=== PATIENT | female | born 1975 | race Caucasian/White ===

== ENCOUNTER → 2021-08-28 | Day surgery (SDC) | payer BC ==
[~2021-08-28] VITALS: Ht 154.9 cm; Wt 78.0 kg
[~2021-08-28] MED LIST: ACETAMINOPHEN 500 MG TABLET PO PRN; BUPIVACAINE-EPI 0.5% 30 ML VIAL KIT. ONE; BUPR300T3 PO; DEXAMETHASONE SOD PHOS 4 MG/ML VIAL ONE; ESCITALOPRAM OX20 MG PO; HYDR12.58 PO; HYDROmorphone 2 MG/ML INJ. IVP PRN; IOHEXOL 300 MG/ML 50 ML VIAL. ONE; IRBE300T23 PO; MORPHINE SULFATE 2 MG/ML INJ. IVP PRN; MORPHINE SULFATE 2 MG/ML INJ. ONE; ONDANSETRON PF 4 MG/2 ML VIAL. ONE; OXYC-325 PO; PROCHLORPERAZINE 10 MG/2 ML VIAL. IVP PRN; PROCHLORPERAZINE 10 MG/2 ML VIAL. ONE; PROPOFOL 10 MG/ML (20ML) VIAL. IV ONE; ROCURONIUM 50 MG/5 ML VIAL. ONE; SCOPOLAMINE 1.5MG PATCH. TD ONE; SUGAMMADEX SODIUM 200 MG/2 ML VIAL. IVP ONE; SURGICEL HEMOSTAT 4X8 EACH. ONE; TRAZ-118 PO; fentaNYL PF VIAL 100 MCG/2 ML VIAL IVP PRN; fentaNYL PF VIAL 100 MCG/2 ML VIAL ONE; oxyCODONE/APAP 5/325 1 TAB TABLET PO ONE
[2021-08-28 10:57] VITALS: BP 144/82
[2021-08-28] MEDS: IV RINGERS,LACTATED 1000ML 1,000 ML IV SCH ×2 (11:16→11:20)
--- NOTE | 2021-08-28 13:26 | PDOC4 ---
Operative Note Operative Note Date: September 282021 at 1:24 PM Preoperative diagnosis: Chronic cholecystitis Postoperative diagnosis: Same Procedure: Laparoscopic cholecystectomy with fluorescein cholangiography Surgeon: Dillan Specimen: Gallbladder Vehicle Trimmer: None Dictation: Patient is a 45-year-old female with right upper quadrant abdominal pain ultrasound showing gallstones. Procedure laparoscopic cholecystectomy was explained to the patient detail risk benefits were also discussed including bleeding infection injury to intra-abdominal contents possible necessitating further open operations alternatives to this procedure also discussed with the patient who seemed to understand and gave a verbal written consent to have pro cedure performed. Patient was taken to the operating room placed in the supine position general anesthesia was initiated once patient was sleeping intubated her abdomen was prepped and draped usual sterile fashion using ChloraPrep. An area just below the umbilicus was injected with quarter percent Marcaine with epinephrine incision was made with a blade scalpel and a varies needle was placed within the abdomen creating pneumoperitoneum once this was complete the millimeter port was placed in a 5 mm camera was placed within the abdomen which was inspected no other abnormalities were noted. A 5 mm ports placed in the epigastrium a 5 mm port was placed in the right midabdomen a 5 mm port was placed in the right lateral abdomen all under direct visualization. The dome of the gallbladder is grasped retracted cephalad the infundibulum the gallbladder is grasped retracted laterally exposing the triangle of adherent tissue the triangle were taken down blunt dissection using [place] grasper exposing the cystic duct and cystic artery fluorescing cholangiography was then performed which showed good dye within the cystic duct to the common bile duct with no evidence of obstruction. The cystic duct was doubly clipped and transected the cystic artery was doubly clipped and transected the gallbladder was taken off the liver with hook electrocautery placed in Endo Catch bag and removed the umbilicus right upper quadrant was irrigated and suctioned dry hemostasis deemed be appropriate the pneumoperitoneum was reduced all ports were removed the fascial defect at the umbilicus was closed with a [id number] 0 Vicryl suture and the skin was reapproximated all port sites for subcuticular Monocryl Mastisol Steri-Strips and island dressings were applied. Patient was awakened extubated in the operating room taken to recovery in stable condition all sponge instrument needle counts listed as correct estimated blood loss 10 mL COOPER GALO MD Aug 28, 2021 13:26
--- NOTE | 2021-08-28 13:29 | DISCH ---
DISCHARGE INSTRUCTIONS Condition on Discharge Condition on Discharge: Stable Activity After Discharge Activity Instructions for Disc: Avoid exertion Other activity instructions: No lifting more than 20 pounds for 2 weeks Diet after Discharge Diet after Discharge: Low Fat Wound Incision Care Other wound/incision instructi: May shower in 24 hours Contacting the after DC Call your doctor for: If your condition worsens Follow-Up Follow up with: Dr. Galo in 2-week COOPER GALO MD Aug 28, 2021 13:29
[2021-08-28 15:00] VITALS: BP 127/77
--- NOTE | 2021-08-29 18:08 | PATHOLOGY ---
[facility] Accession Number: [id number] . 01 Material submitted: . gallbladder - GALLBLADDER AND CONTENTS . 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 02 Diagnosis: Gallbladder, laparoscopic cholecystectomy: - Cholelithiasis. - Chronic cholecystitis. (MARIE:naomi; 08/29/2021) R 08/29/2021 1446 Local . 02 Comment: There is no evidence of malignancy. (MARIEM:naomi; 08/29/2021) . 02 Electronically signed: . Eleazar Dean MD, Pathologist NPI- [id number] . 01 Gross description: . Fixative: Formalin Labeled: Gallbladder and contents Specimen received: Intact gallbladder Dimensions: 5.1 x 2.4 x 1.8 cm Serosa: [place]-villagomez and wrinkled to cauterized Lymph node: None identified Mucosa: Red-villagomez, velvety Average wall thickness: 0.3 cm Calculi: 4 present displaying a yellow-green, multifaceted appearance and ranging in size from 0.6-0.8 cm Abnormalities: None identified . 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 ([facility]; 08/28/2021) NRI/NRI 08/28/2021 1719 Local . 02 Pathologist provided ICD-10: K80.10 . 02 CPT . 493651 Specimen Comment: A courtesy copy of this report has been sent to [phone], [phone] Specimen Comment: [id number] Specimen Comment: Report sent to / DR DUNLAP Performed at: [address], [place], [place] [id number] MD Dell Marshall MD Phone: [phone] Performed at: 02 [facility] [address] [place], [place] [id number] MD Eleazar Dean MD Phone: [phone]
== END | disposition home or self-care (01) ==
LOC: SURG 08:00
PROVIDERS: ATTEND Surgery
DX: K80.10 Calculus of gallbladder with chronic cholecystitis without obstruction (principal); I10 Essential (primary) hypertension; F41.9 Anxiety disorder, unspecified; F32.9 Major depressive disorder, single episode, unspecified; Z79.899 Other long term (current) drug therapy; Z98.890 Other specified postprocedural states; Z72.89 Other problems related to lifestyle; Z88.1 Allergy status to other antibiotic agents
CPT/HCPCS: 47563; 81025; 88304; A4364; A4930; A6219; J0780; J1100; J1956; J2270; J2405; J2704; J3010; J3490; A4657; Q9967